=== PATIENT | male | born 1960 | race African-American/Black ===

== ENCOUNTER 2019-02-26 20:14 | Inpatient (IN) | payer OTHER ==
[~2019-02-26] VITALS: Ht 152.4 cm; Wt 84.0 kg
[2019-02-26 20:38] VITALS: BP 141/87; TEMP 100.2
[2019-02-26 20:57] LABS: PLATELET COUNT 226 K/uL (142-355)
[2019-02-26 21:00] VITALS: BP 143/79
[2019-02-26 21:07] LABS: POTASSIUM 3.4 mmol/L (3.6-5.2)
[2019-02-26 21:30] VITALS: BP 138/84
[2019-02-26 22:00] VITALS: BP 123/68; TEMP 99
[2019-02-26 22:30] VITALS: BP 117/62
[2019-02-26 23:30] VITALS: BP 125/74
[2019-02-27 00:30] VITALS: BP 119/68; TEMP 98.6
[2019-02-27 02:28] VITALS: BP 150/76; TEMP 97.4; Ht 152.4 cm; Wt 84.0 kg
[2019-02-27 05:42] LABS: POTASSIUM 3.7 mmol/L (3.6-5.2)
[2019-02-27 05:56] LABS: PLATELET COUNT 204 K/uL (142-355)
[2019-02-27 08:00] VITALS: BP 157/81; TEMP 98.6
[2019-02-27 20:00] VITALS: BP 167/86; TEMP 98.6
[2019-02-27 23:39] VITALS: BP 153/86; TEMP 97.7
[2019-02-28 04:39] VITALS: BP 149/77; TEMP 98.1
[2019-02-28 05:15] LABS: PLATELET COUNT 192 K/uL (142-355)
[2019-02-28 06:12] LABS: POTASSIUM 4.1 mmol/L (3.6-5.2)
[2019-02-28 20:00] VITALS: BP 169/89; TEMP 98
[2019-02-28 23:50] VITALS: BP 166/79; TEMP 97.7
[2019-03-01 05:25] LABS: PLATELET COUNT 206 K/uL (142-355)
[2019-03-01 05:28] LABS: POTASSIUM 3.5 mmol/L (3.6-5.2)
[2019-03-01 08:00] VITALS: BP 151/80; TEMP 97.6
[2019-03-01 12:00] VITALS: BP 151/89; TEMP 97.6
== END 2019-03-01 12:56 | disposition home or self-care (01) | DRG 440 ==
LOC: ED 20:14 → MED/SURG 02-27 00:41
PROVIDERS: Family Medicine; Internal Medicine; ADMIT Internal Medicine
DX: K85.80 Other acute pancreatitis without necrosis or infection (principal); K86.1 Other chronic pancreatitis; K21.9 Gastro-esophageal reflux disease without esophagitis; D64.89 Other specified anemias; E86.0 Dehydration; R50.9 Fever, unspecified; T78.3XXA Angioneurotic edema, initial encounter; K70.30 Alcoholic cirrhosis of liver without ascites; F10.20 Alcohol dependence, uncomplicated; R73.9 Hyperglycemia, unspecified
CPT/HCPCS: 36415; 80053; 80320; 81000; 82140; 82150; 82272; 83605; 83690; 85027; 93005; 96374; 96375; 99284; J2270; J2405; J3490; Q9963